=== PATIENT | male | born 1985 | race Caucasian/White ===

== ENCOUNTER 2016-08-19 07:12 | Emergency (ER) | payer MEDICAID ==
[2016-08-19] MEDS ORDERED: Acetaminophen ADULT LIQ* 650 MG/20.3 ML UDC PO ONE (08:03)
--- NOTE | 2016-08-19 08:14 | RAD ---
INDICATION: Fever. COMPARISON: Comparison is made with a prior chest x-ray study from December 26, 2015. TECHNIQUE: A portable view of the chest was obtained. FINDINGS: The heart is within normal limits in size. The lungs are underinflated. There is a small focal infiltrate at the left lung base. No pleural effusion is seen. There is a moderate to severe dorsal lumbar scoliosis convex toward the right in the dorsal region and toward the left in the lumbar region. There is a ventricular peritoneal shunt catheter which projects on the right side. IMPRESSION: THE LUNGS ARE UNDERINFLATED. THERE IS A SMALL LEFT BASILAR INFILTRATE.
[2016-08-19 08:15] LABS: Urine Bilirubin Negative (Negative); Urine Glucose Negative (Negative); Urine Nitrite Negative (Negative)
[2016-08-19 08:27] LABS: Hematocrit 60 % (42-52); Hemoglobin 19.7 g/dl (14.0-18.0); Mean Corpuscular HGB Conc 33 g/dl (31-36); Mean Corpuscular Hemoglobin 29 pg (27-31); Mean Corpuscular Volume 88 fL (80-94); Mean Platelet Volume 10 um3 (7.4-10.4); Red Blood Count 6.78 10^6/ul (4.0-5.4); Red Cell Distribution Width 14 % (10.5-15); White Blood Count 13.3 10^3/ul (3.5-10.8)
[2016-08-19 08:29] LABS: Add Diff/Slide Review? Slide Review Added; Comments Flag Yes
[2016-08-19] MEDS ORDERED: Piperac/Tazob 3.375 gm in NS* 3.375 GM/100 ML BAG IVPB ONE (08:40)
[2016-08-19 08:46] LABS: Albumin 5.3 g/dL (3.2-5.2); BUN/Creatinine Ratio 22.4 (8-20); Calcium 11.6 mg/dL (8.6-10.3); EGFR African American 135.2 (>60); EGFR Non-African American 105.1 (>60); Globulin 4.9 g/dL (2-4); Magnesium 1.8 mg/dL (1.9-2.7); Total Bilirubin 0.5 mg/dL (0.2-1.0); Total Protein 10.2 g/dL (6.4-8.9)
[2016-08-19 09:01] LABS: Troponin I 0.01 ng/mL (<0.04)
[2016-08-19 09:16] LABS: Immature Granulocytes 23 % (0-9); Neutrophil % 59 % (38-83)
[2016-08-19 09:17] LABS: Spherocytes 2+
[2016-08-19 09:29] LABS: Potassium 4.1 mmol/L (3.5-5.0)
[2016-08-19 10:20] VITALS: BP 103/57
--- NOTE | 2016-08-19 11:04 | ED ---
Guillermo Benavides Salem, scribed for Miles Spencer MD on 08/19/16 at 0744 . Neurological HPI - HPI Summary HPI Summary: Patient is a 31 y/o M who presents to the ED s/p seizure earlier today. Caregiver reports that pt has not had a seizure since the beginning of 2015. She also states that pt has a hx of ear infection and ear tubes. She reports fever, but denies a cough or cold. Pt has developmental delays. - History of Current Complaint Chief Complaint: EDSeizure Stated Complaint: SEIZURE Time Seen by Provider: 08/19/16 07:31 Hx Obtained From: Patient, Family/Nursing Home Aide Onset/Duration: Gradual Onset, Started hours ago, Resolved Onset Severity: Moderate Current Severity: Moderate Seizure Severity: Moderate Pain Intensity: 0 Pain Scale Used: 0-10 Numeric Aggravating: Nothing Alleviating: Nothing Associated Signs and Symptoms: Positive: Negative - Additional Pertinent History Primary Care Physician: HARPER - Allergy/Home Medications Allergies/Adverse Reactions: Allergies Allergy/AdvReac Type Severity Reaction Status Date / Time No Known Allergies Allergy Verified 10/16/15 15:22 PMH/Surg Hx/FS Hx/Imm Hx Endocrine/Hematology History: Denies: Hx Diabetes Cardiovascular History: Reports: Hx Congenital Heart Disease, Hx Congestive Heart Failure, Other Cardiovascular Problems/Disorders - hx pulmonary stenosis, 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 no cardiac treatment Denies: Hx Hypertension Respiratory History: Reports: Hx Pneumonia, Other Respiratory Problems/ Disorders - pulmonary stenosis GI History: Reports: Hx Gastroesophageal Reflux Disease, Hx Hiatal Hernia - repair History: Reports: Other Problems/Disorders - hx incontinence Denies: Hx Renal Disease Musculoskeletal History: Reports: Hx Scoliosis Sensory History: Reports: Hx Glaucoma - suspected, unclear if diagnosed., Hx Hearing Problem Opthamlomology History: Reports: Hx Glaucoma - suspected, unclear if diagnosed. 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 Family History: Level 5 CAVEAT - Social History Alcohol Use: None Hx Substance Use: No Substance Use Type: Reports: None Hx Tobacco Use: No Smoking Status (MU): Never Smoked Tobacco Have You Smoked in the Last Year: No Review of Systems Positive: Fever Negative: Cough Positive: incontinence Neurological: Other - Seizure. All Other Systems Reviewed And Are Negative: Yes Physical Exam Triage Information Reviewed: Yes Vital Signs On Initial Exam: Initial Vitals Temp Pulse Resp BP Pulse Ox 100.5 F 111 18 113/66 100 08/19/16 07:21 08/19/16 07:21 08/19/16 07:21 08/19/16 07:21 08/19/16 07:21 Vital Signs Reviewed: Yes Appearance: Positive: Well-Appearing, No Pain Distress Skin: Positive: Warm, Skin Color Reflects Adequate Perfusion, Dry Head/Face: Positive: Normal Head/Face Inspection Eyes: Positive: Normal ENT: Positive: Other - Left TM scared. Right TM occluded by cerumen. Neck: Positive: Supple, Nontender, No Lymphadenopathy Respiratory/Lung Sounds: Positive: Clear to Auscultation, Breath Sounds Present Cardiovascular: Positive: RRR Abdomen Description: Positive: Nontender, Soft Bowel Sounds: Positive: Present Musculoskeletal: Positive: Normal Neurological: Positive: Normal Psychiatric: Positive: Normal - Logan Coma Scale Coma Scale Total: 9 Diagnostics - Vital Signs Vital Signs Temp Pulse Resp BP Pulse Ox 08/19/16 07:22 100.5 F 107 17 113/66 100 08/19/16 07:21 100.5 F 111 18 113/66 100 - Laboratory Lab Results: Lab Results 08/19/16 08/19/16 08/19/16 Range/Units 07:48 08:14 08:14 WBC 13.3 H (3.5-10.8) 10^3/ul RBC 6.78 H (4.0-5.4) 10^6/ul Hgb 19.7 H (14.0-18.0) g/dl Hct 60 H (42-52) % MCV 88 (80-94) fL MCH 29 (27-31) pg MCHC 33 (31-36) g/dl RDW 14 (10.5-15) % Plt Count 91 L (150-450) 10^3/ul MPV 10 (7.4-10.4) um3 Immature Gran % (Auto) 23 H (0-9) % Neut % (Auto) 85.6 H (38-83) % Lymph % (Auto) 5.5 L (25-47) % Placer % (Auto) 7.1 (1-9) % Eos % (Auto) 0.5 (0-6) % Baso % (Auto) 1.3 (0-2) % Absolute Neuts (auto) 11.4 H (1.5-7.7) 10^3/ul Absolute Lymphs (auto) 0.7 L (1.0-4.8) 10^3/ul Absolute Monos (auto) 0.9 H (0-0.8) 10^3/ul Absolute Eos (auto) 0.1 (0-0.6) 10^3/ul Absolute Basos (auto) 0.2 (0-0.2) 10^3/ul Absolute Nucleated RBC 0.04 10^3/ul Neutrophils % 59 (38-83) % Band Neutrophils % 23 H (0-8) % Lymphocytes % 9 L (25-47) % Monocytes % 9 (0-13) % Nucleated RBC % 0.3 Normal RBC Morphology Not Reportable Spherocytes 2+ INR (Anticoag Therapy) 0.96 (0.89-1.11) Sodium (133-145) mmol/L Potassium (3.5-5.0) mmol/L Chloride (101-111) mmol/L Carbon Dioxide (22-32) mmol/L Anion Gap (2-11) mmol/L BUN (6-24) mg/dL Creatinine (0.67-1.17) mg/dL Est GFR ( Amer) (>60) Est GFR (Non-Af Amer) (>60) BUN/Creatinine Ratio (8-20) Glucose (70-100) mg/dL Lactic Acid (0.5-2.0) mmol/L Calcium (8.6-10.3) mg/dL Magnesium (1.9-2.7) mg/dL Total Bilirubin (0.2-1.0) mg/dL AST (13-39) U/L ALT (7-52) U/L Alkaline Phosphatase (34-104) U/L Troponin I (<0.04) ng/mL Total Protein (6.4-8.9) g/dL Albumin (3.2-5.2) g/dL Globulin (2-4) g/dL Albumin/Globulin Ratio (1-3) Urine Color Yellow Urine Appearance Clear Urine pH 7.0 (5-9) Ur Specific Beatrice 1.019 (1.010-1.030) Urine Protein Negative (Negative) Urine Ketones Trace H (Negative) Urine Blood Negative (Negative) Urine Nitrate Negative (Negative) Urine Bilirubin Negative (Negative) Urine Urobilinogen Negative (Negative) Ur Leukocyte Esterase Negative (Negative) Urine Glucose Negative (Negative) Urine Ascorbic Acid * H (Negative) 08/19/16 08/19/16 Range/Units 08:14 08:14 WBC (3.5-10.8) 10^3/ul RBC (4.0-5.4) 10^6/ul Hgb (14.0-18.0) g/dl Hct (42-52) % MCV (80-94) fL MCH (27-31) pg MCHC (31-36) g/dl RDW (10.5-15) % Plt Count (150-450) 10^3/ul MPV (7.4-10.4) um3 Immature Gran % (Auto) (0-9) % Neut % (Auto) (38-83) % Lymph % (Auto) (25-47) % Placer % (Auto) (1-9) % Eos % (Auto) (0-6) % Baso % (Auto) (0-2) % Absolute Neuts (auto) (1.5-7.7) 10^3/ul Absolute Lymphs (auto) (1.0-4.8) 10^3/ul Absolute Monos (auto) (0-0.8) 10^3/ul Absolute Eos (auto) (0-0.6) 10^3/ul Absolute Basos (auto) (0-0.2) 10^3/ul Absolute Nucleated RBC 10^3/ul Neutrophils % (38-83) % Band Neutrophils % (0-8) % Lymphocytes % (25-47) % Monocytes % (0-13) % Nucleated RBC % Normal RBC Morphology Spherocytes INR (Anticoag Therapy) (0.89-1.11) Sodium 134 (133-145) mmol/L Potassium 4.1 (3.5-5.0) mmol/L Chloride 98 L (101-111) mmol/L Carbon Dioxide 27 (22-32) mmol/L Anion Gap 9 (2-11) mmol/L BUN 19 (6-24) mg/dL Creatinine 0.85 (0.67-1.17) mg/dL Est GFR ( Amer) 135.2 (>60) Est GFR (Non-Af Amer) 105.1 (>60) BUN/Creatinine Ratio 22.4 H (8-20) Glucose 78 (70-100) mg/dL Lactic Acid 2.2 H* (0.5-2.0) mmol/L Calcium 11.6 H (8.6-10.3) mg/dL Magnesium 1.8 L (1.9-2.7) mg/dL Total Bilirubin 0.50 (0.2-1.0) mg/dL AST 40 H (13-39) U/L ALT 31 (7-52) U/L Alkaline Phosphatase 95 (34-104) U/L Troponin I 0.01 (<0.04) ng/mL Total Protein 10.2 H (6.4-8.9) g/dL Albumin 5.3 H (3.2-5.2) g/dL Globulin 4.9 H (2-4) g/dL Albumin/Globulin Ratio 1.1 (1-3) Urine Color Urine Appearance Urine pH (5-9) Ur Specific Beatrice (1.010-1.030) Urine Protein (Negative) Urine Ketones (Negative) Urine Blood (Negative) Urine Nitrate (Negative) Urine Bilirubin (Negative) Urine Urobilinogen (Negative) Ur Leukocyte Esterase (Negative) Urine Glucose (Negative) Urine Ascorbic Acid (Negative) Result Diagrams: 08/19/16 08:14 08/19/16 08:14 Diagnostic Studies Comment: Trop 1: 0.01. Lactic acid: 2.2 Lab Statement: Any lab studies that have been ordered have been reviewed, and results considered in the medical decision making process. - Radiology CXR Radiology Interpretation Completed By: Radiologist - IMPRESSION: THE LUNGS ARE UNDERINFLATED. THERE IS A SMALL LEFT BASILAR INFILTRATE. - EKG 0734 EKG Interpretation: Sinus tachycardia @ 107 bpm. Non-specific changes. Course/Dx - Course Course Of Treatment: James came in having had a witnessed seizure and with a low grade fever. He was nontoxic in appearance and was found to have a pneumonia. He was treated here and D/C'd. - Diagnoses Provider Diagnoses: Pneumonia Discharge - Discharge Plan Condition: Stable Disposition: HOME Prescriptions: Amoxicillin/Clavulanate SUSP* [Augmentin SUSP*] 800 mg PO BID #200 ml Patient Education Materials: Pneumonia (ED) Referrals: Jose Antonio Jang MD [Primary Care Provider] - Additional Instructions: Follow up with PCP. The documentation as recorded by the Guillermo gipson Salem accurately reflects the service I personally performed and the decisions made by me, Miles Spencer MD.
== END 2016-08-19 10:12 | disposition home or self-care (01) ==
LOC: ED 07:12
DX: J18.9 Pneumonia, unspecified organism (principal); R56.9 Unspecified convulsions; R50.9 Fever, unspecified
CPT/HCPCS: 36415; 71010; 80053; 81003; 83605; 83735; 84484; 85025; 85610; 93005; 99284; A9270-GY; J2543

== ENCOUNTER 2017-04-03 16:01 | Emergency (ER) | payer MEDICAID ==
--- NOTE | 2017-04-03 16:25 | UC ---
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 Hx From Patient Unobtainable Due To: Other - non verbal Onset/Duration: Gradual Onset, Lasting Days - Allergies/Home Medications Allergies/Adverse Reactions: Allergies Allergy/AdvReac Type Severity Reaction Status Date / Time No Known Allergies Allergy Verified 04/03/17 16:38 PMH/Surg Hx/FS Hx/Imm Hx Previously Healthy: Yes - vps/CP/FUO/ Respiratory History: Pneumonia Neurological History: Seizures - Surgical History Surgical History: Yes Surgery Procedure, Year, and Place: shunt surgery x 2, hernia repair, hamstring lengthening, tubes in ears x5 - Family History Known Family History: Positive: Unknown - Pt unable to provide. Family History: Level 5 CAVEAT - Social History Alcohol Use: None Substance Use Type: None Smoking Status (MU): Never Smoked Tobacco Have You Smoked in the Last Year: No - Immunization History Most Recent Influenza Vaccination: 2014 Most Recent Tetanus Shot: 2009 Most Recent Pneumonia Vaccination: never Review of Systems Constitutional: Fever - reported 2-3 days ago Skin: Negative - staff denies Eyes: Other - staff denies ENT: Other - slapping at ears/no other issues reported by staff Respiratory: Other - no cough reported by staff Cardiovascular: Other - unable to ascertain Gastrointestinal: Vomiting - days ago vomited twice Genitourinary: Other - no issues reported by staff Motor: Other - baseline unchanged per staff Neurovascular: Negative Musculoskeletal: Other: - baseline Neurological: Other - appears at baseling per staff Psychological: Other - baseline Is Patient Immunocompromised?: No All Other Systems Reviewed And Are Negative: Yes Physical Exam Triage Information Reviewed: Yes Appearance: Pain Distress - appears to be in pain/slapping head/pale and diaphoretic Vital Signs: Initial Vital Signs Temp 97 F 04/03/17 16:08 Pulse 86 04/03/17 16:08 Resp 18 04/03/17 16:08 BP 157/76 04/03/17 16:08 Pulse Ox 97 04/03/17 16:08 Vital Signs Reviewed: Yes Eyes: Positive: Conjunctiva Clear ENT: Negative: Hearing grossly normal, Nasal congestion, Nasal drainage, TMs normal - unable to visualize due to cerumen, Muffled voice, Hoarse voice Neck: Positive: Supple, Nontender, No Lymphadenopathy Respiratory: Positive: Lungs clear, Normal breath sounds, No respiratory distress, No accessory muscle use Cardiovascular: Positive: RRR, No Murmur Abdomen Description: Positive: Nontender, Soft Bowel Sounds: Positive: Present Musculoskeletal: Positive: Other: - contractures/spacity Neurological: Positive: Alert Psychological Exam: Normal Skin: Positive: Other - pale Re-Evaluation - Re-Evaluation First Eval Change: Unchanged - after flush TMs appear normal, pt still looks like he is in pain Ear Complaint Course/Dx - Differential Dx/Diagnosis Provider Diagnoses: pain of certain cause. recent fever and vomiting Discharge - Discharge Plan Condition: Fair Disposition: HOME Referrals: Jose Antonio Jang MD [Primary Care Provider] - Additional Instructions: I [place] [facility] [place] [facility]
[2017-04-03] MEDS ORDERED: Ibuprofen PED LIQ* 100 MG/5 ML UDC PO ONE (16:42)
[2017-04-03 17:25] VITALS: BP 150/80
== END 2017-04-03 17:15 | disposition home or self-care (01) ==
LOC: UCEAST 16:01
DX: R52 Pain, unspecified (principal); R50.9 Fever, unspecified; R11.10 Vomiting, unspecified
CPT/HCPCS: 99213; G0463

== ENCOUNTER 2017-04-03 17:55 | Emergency (ER) | payer MEDICAID ==
[2017-04-03 19:26] LABS: ABS Basophils 0 10^3/ul (0-0.2); ABS Eosinophils 0 10^3/ul (0-0.6); ABS Lymphocytes 1.3 10^3/ul (1.0-4.8); ABS Monocytes 1.7 10^3/ul (0-0.8); ABS Neutrophils 12.6 10^3/ul (1.5-7.7); ABS Nucleated RBC 0 10^3/ul; Eosinophil % 0.1 % (0-6); Hematocrit 52 % (42-52); Hemoglobin 17.4 g/dl (14.0-18.0); Lymphocyte % 8.1 % (25-47); Mean Corpuscular HGB Conc 33 g/dl (31-36); Mean Corpuscular Hemoglobin 30 pg (27-31); Mean Corpuscular Volume 89 fL (80-94); Mean Platelet Volume 10 um3 (7.4-10.4); Nucleated Red Blood Cells % 0; Platelet Count 89 10^3/ul (150-450); Red Blood Count 5.84 10^6/ul (4.0-5.4); Red Cell Distribution Width 14 % (10.5-15); White Blood Count 15.6 10^3/ul (3.5-10.8)
[2017-04-03 19:43] LABS: EGFR Non-African American 154.2 (>60)
[2017-04-03] MEDS ORDERED: NS 0.9% 1000 ML*IV.FLUID IV ONE (19:52)
[2017-04-03] MEDS ORDERED: Ondansetron INJ* 2 MG/ML VIAL IV ONE ×2 (19:52→20:07)
--- NOTE | 2017-04-03 20:40 | RAD ---
INDICATION: Fever COMPARISON: Chest x-ray dated October 05, 2016 TECHNIQUE: Single AP portable view of the chest was obtained. FINDINGS: Image quality is compromised due to the relative inferiority of a portable chest x-ray. Again seen is dextroconvex curvature of the thoracic spine similar in appearance to the prior chest x-ray. There appears to be a ventriculoperitoneal shunt unchanged in position. The lungs are clear. The heart and mediastinum exhibit normal size and contour. IMPRESSION: No radiographic evidence for acute cardiopulmonary abnormality on this portable chest x-ray.
[2017-04-03 22:17] LABS: Urine Appearance Clear; Urine Blood Negative (Negative); Urine Color Yellow; Urine Ketones Trace (Negative); Urine Protein Negative (Negative); Urine Specific Gravity 1.021 (1.010-1.030); Urine Urobilinogen Negative (Negative)
[2017-04-03 22:55] VITALS: BP 123/84
--- NOTE | 2017-04-04 06:03 | ED ---
Emerald Benavdies Nilda, scribed for Ann Hughes MD on 04/03/17 at 2014 . Complex/Multi-Sys Presentation - HPI Summary HPI Summary: LEVEL 5 CAVEAT: Hx is limited to pts nonverbal status due to severe MR. Pt is a 31 y/o M presenting to [facility] to [facility] accompanied by aid with a chief complaint of acute intermittent vomiting (2x) that is no longer present during the past couple of days, per medical report. Report notes pt had fever beginning today. Vomiting alleviated by spontaneous resolution. - History Of Current Complaint Chief Complaint: EDGeneral Time Seen by Provider: 04/03/17 19:28 Hx Obtained From: Medical Records Hx From Patient Unobtainable Due To: Other - severe MR Onset/Duration: Sudden Onset, Lasting Days, Resolved Timing: Intermittent, Lasting:, Days Alleviating Factor(s): spontaneous resolution Associated Signs And Symptoms: Positive: Fever - Allergies/Home Medications Allergies/Adverse Reactions: Allergies Allergy/AdvReac Type Severity Reaction Status Date / Time No Known Allergies Allergy Verified 04/03/17 16:38 PMH/Surg Hx/FS Hx/Imm Hx Endocrine/Hematology History: Denies: Hx Diabetes Cardiovascular History: Reports: Hx Congenital Heart Disease, Hx Congestive Heart Failure, Other Cardiovascular Problems/Disorders - hx pulmonary stenosis, 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 no cardiac treatment Denies: Hx Hypertension Respiratory History: Reports: Hx Pneumonia, Other Respiratory Problems/ Disorders - pulmonary stenosis GI History: Reports: Hx Gastroesophageal Reflux Disease, Hx Hiatal Hernia - repair History: Reports: Other Problems/Disorders - hx incontinence Denies: Hx Renal Disease Musculoskeletal History: Reports: Hx Scoliosis Sensory History: Reports: Hx Glaucoma - suspected, unclear if diagnosed., Hx Hearing Problem Opthamlomology History: Reports: Hx Glaucoma - suspected, unclear if diagnosed. 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 Family History: Level 5 CAVEAT - Social History Alcohol Use: None Hx Substance Use: No Substance Use Type: Reports: None Hx Tobacco Use: No Smoking Status (MU): Never Smoked Tobacco Have You Smoked in the Last Year: No Review of Systems - ROS Summary Review of Systems Summary: LEVEL 5 CAVEAT: Hx is limited to pts inability to nonverbal status due to severe MR. Positive: Fever Positive: Vomiting All Other Systems Reviewed And Are Negative: No Physical Exam - Summary Physical Exam Summary: GENERAL: Patient is a well-developed and nourished male who is lying comfortable in the stretcher. Patient is not in any acute respiratory distress. HEAD AND FACE: No signs of trauma. No ecchymosis, hematomas or skull depressions. No sinus tenderness. NECK: Supple, trachea is midline, no adenopathy, no JVD, no carotid bruit, no c- spine tenderness, neck with full ROM. CHEST: Symmetric, no tenderness at palpation CVS: Regular rate and rhythm, S1 and S2 present, no murmurs or gallops appreciated. ABDOMEN: Soft, non-tender. No signs of distention. No rebound no guarding, and no masses palpated. Bowel sounds are normal. NEURO: Severe MR, bed bound, nonverbal, Neuro exam is unable to assess because of baseline SKIN: Dry and warm Triage Information Reviewed: Yes Vital Signs On Initial Exam: Initial Vitals Temp Pulse Resp BP Pulse Ox 98.2 F 100 16 132/99 100 04/03/17 18:08 04/03/17 18:08 04/03/17 18:08 04/03/17 18:08 04/03/17 18:08 Vital Signs Reviewed: Yes Completion Of Physical Exam Limited Due To: Other - LEVEL 5 CAVEAT: PE is limited to pts nonverbal status due to severe MR. Diagnostics - Vital Signs Vital Signs Temp Pulse Resp BP Pulse Ox 04/03/17 18:08 98.2 F 100 16 132/99 100 - Laboratory Lab Results: Lab Results 04/03/17 04/03/17 Range/Units 19:15 19:15 WBC 15.6 H (3.5-10.8) 10^3/ul RBC 5.84 H (4.0-5.4) 10^6/ul Hgb 17.4 (14.0-18.0) g/dl Hct 52 (42-52) % MCV 89 (80-94) fL MCH 30 (27-31) pg MCHC 33 (31-36) g/dl RDW 14 (10.5-15) % Plt Count 89 L (150-450) 10^3/ul MPV 10 (7.4-10.4) um3 Neut % (Auto) 80.5 (38-83) % Lymph % (Auto) 8.1 L (25-47) % Christian % (Auto) 11.0 H (1-9) % Eos % (Auto) 0.1 (0-6) % Baso % (Auto) 0.3 (0-2) % Absolute Neuts (auto) 12.6 H (1.5-7.7) 10^3/ul Absolute Lymphs (auto) 1.3 (1.0-4.8) 10^3/ul Absolute Monos (auto) 1.7 H (0-0.8) 10^3/ul Absolute Eos (auto) 0 (0-0.6) 10^3/ul Absolute Basos (auto) 0 (0-0.2) 10^3/ul Absolute Nucleated RBC 0 10^3/ul Nucleated RBC % 0 Sodium 136 (133-145) mmol/L Potassium 3.7 (3.5-5.0) mmol/L Chloride 98 L (101-111) mmol/L Carbon Dioxide 27 (22-32) mmol/L Anion Gap 11 (2-11) mmol/L BUN 18 (6-24) mg/dL Creatinine 0.61 L (0.67-1.17) mg/dL Est GFR ( Amer) 198.3 (>60) Est GFR (Non-Af Amer) 154.2 (>60) BUN/Creatinine Ratio 29.5 H (8-20) Glucose 179 H (70-100) mg/dL Calcium 10.9 H (8.6-10.3) mg/dL Total Bilirubin 0.30 (0.2-1.0) mg/dL AST 21 (13-39) U/L ALT 13 (7-52) U/L Alkaline Phosphatase 67 (34-104) U/L Total Protein 8.1 (6.4-8.9) g/dL Albumin 4.3 (3.2-5.2) g/dL Globulin 3.8 (2-4) g/dL Albumin/Globulin Ratio 1.1 (1-3) Result Diagrams: 04/03/17 19:15 04/03/17 19:15 Lab Statement: Any lab studies that have been ordered have been reviewed, and results considered in the medical decision making process. - Radiology CXR Radiology Interpretation Completed By: Radiologist - No radiographic evidence for acute cardiopulmonary abnormality on this portable chest x-ray. Dr. Hughes has reviewed this report. Complex Multi-Symp Course/Dx Assessment/Plan: 31 y/o with profound MR who came to ED bc vomitted twice. Physcial Exam is unremarkable. Pt did not vomit in ED. Pt has leukocytosis without any other findings in lab or CXR. Pt will be D/C with Dx of Acute gastritis. - Diagnoses Provider Diagnoses: Acute gastritis Discharge - Discharge Plan Condition: Stable Disposition: HOME Patient Education Materials: Gastritis (ED) Referrals: Jose Antonio Jang MD [Primary Care Provider] - 3 Days Additional Instructions: RETURN TO THE EMERGENCY DEPARTMENT FOR CHANGING OR WORSENING SYMPTOMS. The documentation as recorded by the Emerald gipson Nilda accurately reflects the service I personally performed and the decisions made by Ellen burris Abdul, MD.
== END 2017-04-03 22:55 | disposition home or self-care (01) ==
LOC: ED 17:55
DX: K29.00 Acute gastritis without bleeding (principal)
CPT/HCPCS: 36415; 71045; 80053; 81003; 82150; 83690; 85025; 86140; 87502; 96374; 96375; 99283; J2405

== ENCOUNTER 2017-04-07 13:43 | Emergency (ER) | payer MEDICAID ==
[2017-04-07 15:05] LABS: ABS Basophils 0 10^3/ul (0-0.2); ABS Eosinophils 0.1 10^3/ul (0-0.6); ABS Lymphocytes 1.4 10^3/ul (1.0-4.8); ABS Monocytes 1.4 10^3/ul (0-0.8); ABS Neutrophils 4.8 10^3/ul (1.5-7.7); ABS Nucleated RBC 0 10^3/ul; Eosinophil % 1.3 % (0-6); Hematocrit 54 % (42-52); Hemoglobin 18.3 g/dl (14.0-18.0); Lymphocyte % 18.5 % (25-47); Mean Corpuscular HGB Conc 34 g/dl (31-36); Mean Corpuscular Hemoglobin 30 pg (27-31); Mean Corpuscular Volume 89 fL (80-94); Mean Platelet Volume 10 um3 (7.4-10.4); Nucleated Red Blood Cells % 0.1; Platelet Count 108 10^3/ul (150-450); Red Cell Distribution Width 14 % (10.5-15); White Blood Count 7.8 10^3/ul (3.5-10.8)
[2017-04-07 15:25] LABS: EGFR Non-African American 163.4 (>60)
[2017-04-07] MEDS ORDERED: Iohexol 300* (CONTRAST) 10 ML SDV IV ONE (17:02)
[2017-04-07] MEDS ORDERED: LORazepam INJ* 2 MG/ML 1 ML VIAL IV PUSH ONE (17:07)
--- NOTE | 2017-04-07 18:17 | RAD ---
CLINICAL HISTORY: Elevated white blood cell count. Relevant surgical history includes "shunt surgery x2" and her repair. COMPARISON: Multiple prior body CTs, most recently dated September 07, 2015 TECHNIQUE: Contrast enhanced CT examination of the abdomen and pelvis from the lung bases through the initial tuberosities. The patient received 16 mL Omnipaque 300 intravenously prior to imaging. FINDINGS: Unless otherwise specified comparisons below reference to September 07, 2015 CT examination. VISUALIZED LUNG BASES: The visualized lung bases are grossly clear. There is no pleural effusion. ABDOMEN AND PELVIS: Again seen is a right hemithorax ventricular peritoneal shunt that loops several times in the abdomen before terminating in the right lower quadrant. At the right hepatic dome (axial image 11) there is a 4 mm hypoattenuating focus unchanged from the prior CT examination and of doubtful clinical significance. The liver is otherwise homogenous in attenuation. The spleen, pancreas and adrenal glands are grossly normal in appearance. The gallbladder is normal. The kidneys are normal in appearance without focal mass, calcification or signs of hydronephrosis. Evaluation of the gastrointestinal tract is limited without oral contrast. The small and large bowel are not distended. The patient's normal appendix is identified in the right lower quadrant measuring 5 mm in diameter with gas in the lumen. The colon is mostly stool-filled but not pathologically dilated. There are air-fluid levels in the rectosigmoid colon. There is no definite wall thickening.. There is no gross retroperitoneal or mesenteric lymphadenopathy. The pelvic viscera is normal in appearance. The abdominal aorta and iliac arteries are normal in course and diameter. The spine is scoliotic. There are no acute fractures or other acute osseous abnormalities. IMPRESSION: 1. Air-fluid levels in the rectosigmoid colon could be seen in the setting of diarrhea illness. The gastrointestinal tract is otherwise unremarkable. 2. There are chronic and iatrogenic findings described in body the report not significantly changed since the most recent September 07, 2015 CT examination.
[2017-04-07 19:02] VITALS: BP 92/62
--- NOTE | 2017-04-07 19:08 | ED ---
Nettie Benavides Julia, scribed for Padmini Dee MD on 04/07/17 at 1553 . Complex/Multi-Sys Presentation - HPI Summary HPI Summary: This patient is a 31 year old M presenting to [facility] [place] accompanied by mother with a chief complaint of suspected abdominal pain. Mother suspects abdominal pain due to position, crying, and unusual behavior; she reports vomiting . During recent ED (04/03/17) visit there was no fever present, cerumen buildup , and no acute pathology with CXR. Patient has had multiple sick contacts in his group housing. Patient is generally mute, deaf, and developmentally delayed. 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 Hx From Patient Unobtainable Due To: Other - deaf, mute, developmental delay Onset/Duration: Lasting Days Timing: Constant Location: Pain At: - suspected abdominal Alleviating Factor(s): postition Associated Signs And Symptoms: Positive: Other - crying, and unusual behavior Related History: Recent Hospitalization - Allergies/Home Medications Allergies/Adverse Reactions: Allergies Allergy/AdvReac Type Severity Reaction Status Date / Time No Known Allergies Allergy Verified 04/03/17 16:38 Home Medications: Home Medications Triazolam TAB* [Halcion TAB*] 0.375 mg PO BEDTIME 04/07/17 [History Confirmed ] levETIRAcetam TAB* [Keppra TAB*] 1,000 mg PO BID 04/07/17 [History Confirmed ] PMH/Surg Hx/FS Hx/Imm Hx Endocrine/Hematology History: Denies: Hx Diabetes Cardiovascular History: Reports: Hx Congenital Heart Disease, Hx Congestive Heart Failure, Other Cardiovascular Problems/Disorders - hx pulmonary stenosis, 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 no cardiac treatment Denies: Hx Hypertension Respiratory History: Reports: Hx Pneumonia, Other Respiratory Problems/ Disorders - pulmonary stenosis GI History: Reports: Hx Gastroesophageal Reflux Disease, Hx Hiatal Hernia - repair History: Reports: Other Problems/Disorders - hx incontinence Denies: Hx Renal Disease Musculoskeletal History: Reports: Hx Scoliosis Sensory History: Reports: Hx Glaucoma - suspected, unclear if diagnosed., Hx Hearing Problem Opthamlomology History: Reports: Hx Glaucoma - suspected, unclear if diagnosed. 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 Family History: Level 5 CAVEAT - Social History Alcohol Use: None Hx Substance Use: No Substance Use Type: Reports: None Hx Tobacco Use: No Smoking Status (MU): Never Smoked Tobacco Have You Smoked in the Last Year: No Review of Systems All Other Systems Reviewed And Are Negative: No - Comments Additional Review of Systems Comments: Patient is unable to provide ROS due to developmental delays. Physical Exam - Summary Physical Exam Summary: Appearance: Awake lying face down on bed, nontoxic appearing Skin: Warm, dry, no mottling, no rashes, no contusions HEENT: EOMI, PERRL, moist mucous membranes Neck: No masses on the neck, supple Respiratory: Clear to auscultation, breath sounds present, no rales, no rhonchi , no wheezes Cardiovascular: RRR, pulses are symmetrical in both lower and upper extremities Abdomen: Soft, non-tender, non-distended Bowel Sounds: Present Musculoskeletal: No CVA tenderness, no obvious deformity, moving all extremities in a grossly normal manner, no swelling Neurological: A&Ox3, CN II-XII Intact, moving all extremities symmetrically Psychiatric: Normal affect and mood Triage Information Reviewed: Yes Vital Signs On Initial Exam: Initial Vitals Temp Pulse Resp BP Pulse Ox 98.4 F 110 16 128/88 100 04/07/17 13:45 04/07/17 13:45 04/07/17 13:45 04/07/17 13:45 04/07/17 13:45 Vital Signs Reviewed: Yes - [place] Coma Scale Coma Scale Total: 10 Diagnostics - Vital Signs Vital Signs Temp Pulse Resp BP Pulse Ox 04/07/17 14:37 98.2 F 04/07/17 13:45 98.4 F 110 16 128/88 100 - Laboratory Lab Results: Lab Results 04/07/17 04/07/17 04/07/17 Range/Units 14:53 14:53 14:53 WBC 7.8 (3.5-10.8) 10^3/ul RBC 6.10 H (4.0-5.4) 10^6/ul Hgb 18.3 H (14.0-18.0) g/dl Hct 54 H (42-52) % MCV 89 (80-94) fL MCH 30 (27-31) pg MCHC 34 (31-36) g/dl RDW 14 (10.5-15) % Plt Count 108 L (150-450) 10^3/ul MPV 10 (7.4-10.4) um3 Neut % (Auto) 61.9 (38-83) % Lymph % (Auto) 18.5 L (25-47) % [place] % (Auto) 17.7 H (1-9) % Eos % (Auto) 1.3 (0-6) % Baso % (Auto) 0.6 (0-2) % Absolute Neuts (auto) 4.8 (1.5-7.7) 10^3/ul Absolute Lymphs (auto) 1.4 (1.0-4.8) 10^3/ul Absolute Monos (auto) 1.4 H (0-0.8) 10^3/ul Absolute Eos (auto) 0.1 (0-0.6) 10^3/ul Absolute Basos (auto) 0 (0-0.2) 10^3/ul Absolute Nucleated RBC 0 10^3/ul Nucleated RBC % 0.1 Sodium 135 (133-145) mmol/L Potassium 4.2 (3.5-5.0) mmol/L Chloride 99 L (101-111) mmol/L Carbon Dioxide 29 (22-32) mmol/L Anion Gap 7 (2-11) mmol/L BUN 16 (6-24) mg/dL Creatinine 0.58 L (0.67-1.17) mg/dL Est GFR ( Amer) 210.2 (>60) Est GFR (Non-Af Amer) 163.4 (>60) BUN/Creatinine Ratio 27.6 H (8-20) Glucose 105 H (70-100) mg/dL Lactic Acid 2.0 (0.5-2.0) mmol/L Calcium 10.8 H (8.6-10.3) mg/dL Total Bilirubin 0.40 (0.2-1.0) mg/dL AST 18 (13-39) U/L ALT 11 (7-52) U/L Alkaline Phosphatase 61 (34-104) U/L Total Protein 8.0 (6.4-8.9) g/dL Albumin 4.1 (3.2-5.2) g/dL Globulin 3.9 (2-4) g/dL Albumin/Globulin Ratio 1.1 (1-3) Result Diagrams: 04/07/17 14:53 04/07/17 14:53 Lab Statement: Any lab studies that have been ordered have been reviewed, and results considered in the medical decision making process. - CT A/p CT Interpretation Completed By: Radiologist - 1. Air-fluid levels in the rectosigmoid colon could be seen in the setting of diarrhea illness. The gastrointestinal tract is otherwise unremarkable. 2. There are chronic and iatrogenic findings described in body the report not significantly changed since the most recent September 07, 2015 CT examination. ED Physician has reviewed this report. Re-Evaluation - Re-Evaluation 1 Re-Evaluation Time: 17:50 Comment: Labs were reviewed as normal. Explained to pts mother that with non verbal pts it can be difficult to appreciate cause of illness, hence the CT order. 2 Re-Evaluation Time: 18:40 Comment: Verbalized discharge instructions Complex Multi-Symp Course/Dx Course Of Treatment: Patient presented with unusal behavior. Pt was recently in the ED for fever. Pt is nonverbal but mother suspects he has abdominal pain. A/ P CT was performed to r/o any pathology.CT was unremarkable. Patient should continue regular medications. - Diagnoses Provider Diagnoses: Abdominal pain Discharge - Discharge Plan Condition: Stable Disposition: HOME Patient Education Materials: Abdominal Pain (ED) Referrals: Jose Antonio Jang MD [Primary Care Provider] - Additional Instructions: Follow up with your primary care physician early next week. return if worse or any new symptoms. Take all medications as previously instructed. The documentation as recorded by the Ntetie gipson Julia accurately reflects the service I personally performed and the decisions made by , Padmini Dee MD.
== END 2017-04-07 18:54 | disposition home or self-care (01) ==
LOC: ED 13:43
DX: R10.9 Unspecified abdominal pain (principal); R11.10 Vomiting, unspecified
CPT/HCPCS: 36415; 74177; 80053; 83605; 85025; 96374; 99283; J2060; Q9967

== ENCOUNTER 2017-04-14 21:57 | Emergency (ER) | payer MEDICAID ==
[2017-04-14] MEDS ORDERED: NS 0.9% 1000 ML* 1,000 ML IV ONE (23:37)
[2017-04-15 00:42] LABS: Hematocrit 59 % (42-52); Hemoglobin 19.7 g/dl (14.0-18.0); Mean Corpuscular HGB Conc 34 g/dl (31-36); Mean Corpuscular Hemoglobin 30 pg (27-31); Mean Corpuscular Volume 89 fL (80-94); Mean Platelet Volume 11 um3 (7.4-10.4); Platelet Count 128 10^3/ul (150-450); Red Blood Count 6.63 10^6/ul (4.0-5.4); Red Cell Distribution Width 14 % (10.5-15); White Blood Count 21.6 10^3/ul (3.5-10.8)
[2017-04-15 00:57] LABS: INR 0.98 (0.77-1.02)
[2017-04-15] MEDS ORDERED: NS 0.9% 500 ML* 500 ML IV ONE (01:09)
[2017-04-15] MEDS ORDERED: Levofloxacin 500 MG IVPREMIX(* 500 MG/100 ML BAG IVPB ONE (01:16)
[2017-04-15] MEDS ORDERED: Vancomycin(*) 500 MG in NS 0.9% 250 ML* 250 ML IVPB ONE (01:16)
[2017-04-15] MEDS ORDERED: Piperacillin/Tazobac ADVAN(*) 3.375 GM in NS 0.9% 100 ML* 100 ML IVPB ONE ×4 (01:16)
[2017-04-15 01:23] LABS: ABS Basophils 0 10^3/ul (0-0.2); ABS Eosinophils 0 10^3/ul (0-0.6); ABS Lymphocytes 1.6 10^3/ul (1.0-4.8); ABS Monocytes 2.1 10^3/ul (0-0.8); ABS Neutrophils 17.9 10^3/ul (1.5-7.7); ABS Nucleated RBC 0 10^3/ul; Eosinophil % 0.1 % (0-6); Lymphocyte % 7.2 % (25-47); Nucleated Red Blood Cells % 0
[2017-04-15 01:31] LABS: EGFR Non-African American 116.1 (>60)
[2017-04-15 02:13] LABS: Urine Appearance Clear; Urine Blood Negative (Negative); Urine Color Yellow; Urine Ketones Trace (Negative); Urine Protein Negative (Negative); Urine Urobilinogen Negative (Negative)
[2017-04-15] MEDS ORDERED: NS 0.9% 250 ML* 250 ML ONE (03:06)
[2017-04-15] MEDS ORDERED: Vancomycin(*) 750 MG in NS 0.9% 250 ML* 250 ML IVPB ONE (03:10)
--- NOTE | 2017-04-15 04:43 | ED ---
Mac Benavides Tecjoon, scribed for Frandy Edwards MD on 04/14/17 at 2336 . Abdominal Pain/Male - HPI Summary HPI Summary: This patient is a 31 year old male brought to [facility] [place] by family with a chief complaint of abdominal since the past two week. Patient lives in [facility]. Patient has been in here 3 times in the past 2 weeks for similar concerns. 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 Patient has also previously received a CT scan w/ contrast that was negative. Symptoms aggravated by nothing. Symptoms alleviated by nothing. Patients parents additionally reports vomiting. HPI Limited due to Level 5 Caveat - History of Current Complaint Chief Complaint: EDAbdPain Stated Complaint: STOMACH BUG Time Seen by Provider: 04/14/17 23:17 Hx Obtained From: Patient Onset/Duration: Gradual Onset, Still Present Timing: Constant Severity Initially: Moderate Severity Currently: Moderate Pain Intensity: 0 Pain Scale Used: 0-10 Numeric - Allergies/Home Medications Allergies/Adverse Reactions: Allergies Allergy/AdvReac Type Severity Reaction Status Date / Time No Known Allergies Allergy Verified 04/14/17 23:08 PMH/Surg Hx/FS Hx/Imm Hx Previously Healthy: No - PMHx Limited due to Level 5 Caveat Endocrine/Hematology History: Denies: Hx Diabetes Cardiovascular History: Reports: Hx Congenital Heart Disease, Hx Congestive Heart Failure, Other Cardiovascular Problems/Disorders - hx pulmonary stenosis, 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 no cardiac treatment Denies: Hx Hypertension Respiratory History: Reports: Hx Pneumonia, Other Respiratory Problems/ Disorders - pulmonary stenosis GI History: Reports: Hx Gastroesophageal Reflux Disease, Hx Hiatal Hernia - repair History: Reports: Other Problems/Disorders - hx incontinence Denies: Hx Renal Disease Musculoskeletal History: Reports: Hx Scoliosis Sensory History: Reports: Hx Glaucoma - suspected, unclear if diagnosed., Hx Hearing Problem Opthamlomology History: Reports: Hx Glaucoma - suspected, unclear if diagnosed. 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, profound MR, pt nonverbal - Surgical History Surgery Procedure, Year, and Place: shunt surgery x 2, hernia repair, hamstring lengthening, tubes in ears x5 Hx Anesthesia Reactions: No - Immunization History Date of Tetanus Vaccine: utd Date of Influenza Vaccine: utd Immunizations Up to Date: Yes Infectious Disease History: No Infectious Disease History: Denies: Traveled Outside the US in Last 30 Days - Family History Family History: FHx limited due to Level 5 Caveat - Social History Alcohol Use: None Hx Substance Use: No Substance Use Type: Reports: None Hx Tobacco Use: No Smoking Status (MU): Never Smoked Tobacco Have You Smoked in the Last Year: No Review of Systems Negative: Fever Positive: Abdominal Pain, Vomiting All Other Systems Reviewed And Are Negative: No - Comments Additional Review of Systems Comments: ROS Limited due to Level 5 Caveat Physical Exam - Summary Physical Exam Summary: Skin: warm, dry, reflects adequate perfusion Head/face: normal Eyes: LUIS, slight nystagmus in right eye ENT: Chronic appearing perforation in left ear. Dried vomitus in nose. Unable to see back of pharynx Respiratory: breath sounds shallow Cardiovascular: RRR, non-tachycardic. Posterior tibial pulse, difficult to feel dorsalis pedis pulse in both extremities. Musculoskeletal: normal, strength/ROM intact PE Limited due to Level 5 Caveat Triage Information Reviewed: No Vital Signs On Initial Exam: Initial Vitals Temp Pulse Resp BP Pulse Ox 98.4 F 100 16 135/104 94 04/14/17 22:00 04/14/17 22:00 04/14/17 22:00 04/14/17 22:00 04/14/17 22:00 Vital Signs Reviewed: No Completion Of Physical Exam Limited Due To: Level 5 Diagnostics - Vital Signs Vital Signs Temp Pulse Resp BP Pulse Ox 04/14/17 22:00 98.4 F 100 16 135/104 94 - Laboratory Lab Results: Lab Results 04/15/17 04/15/17 04/15/17 Range/Units 00:00 00:00 00:00 WBC 21.6 H (3.5-10.8) 10^3/ul RBC 6.63 H (4.0-5.4) 10^6/ul Hgb 19.7 H (14.0-18.0) g/dl Hct 59 H (42-52) % MCV 89 (80-94) fL MCH 30 (27-31) pg MCHC 34 (31-36) g/dl RDW 14 (10.5-15) % Plt Count 128 L (150-450) 10^3/ul MPV 11 H (7.4-10.4) um3 Neut % (Auto) 83.0 (38-83) % Lymph % (Auto) 7.2 L (25-47) % [place] % (Auto) 9.6 H (1-9) % Eos % (Auto) 0.1 (0-6) % Baso % (Auto) 0.1 (0-2) % Absolute Neuts (auto) 17.9 H (1.5-7.7) 10^3/ul Absolute Lymphs (auto) 1.6 (1.0-4.8) 10^3/ul Absolute Monos (auto) 2.1 H (0-0.8) 10^3/ul Absolute Eos (auto) 0 (0-0.6) 10^3/ul Absolute Basos (auto) 0 (0-0.2) 10^3/ul Absolute Nucleated RBC 0 10^3/ul Nucleated RBC % 0 INR (Anticoag Therapy) 0.98 (0.77-1.02) APTT 29.7 (26.0-36.3) seconds Sodium 137 (133-145) mmol/L Potassium 4.3 (3.5-5.0) mmol/L Chloride 98 L (101-111) mmol/L Carbon Dioxide 26 (22-32) mmol/L Anion Gap 13 H (2-11) mmol/L BUN 15 (6-24) mg/dL Creatinine 0.78 (0.67-1.17) mg/dL Est GFR ( Amer) 149.3 (>60) Est GFR (Non-Af Amer) 116.1 (>60) BUN/Creatinine Ratio 19.2 (8-20) Glucose 106 H (70-100) mg/dL Lactic Acid (0.5-2.0) mmol/L Calcium 11.8 H (8.6-10.3) mg/dL Total Bilirubin 0.50 (0.2-1.0) mg/dL AST 24 (13-39) U/L ALT 17 (7-52) U/L Alkaline Phosphatase 96 (34-104) U/L Troponin I 0.03 (<0.04) ng/mL C-Reactive Protein 6.68 H (< 5.00) mg/L Total Protein 9.3 H (6.4-8.9) g/dL Albumin 4.7 (3.2-5.2) g/dL Globulin 4.6 H (2-4) g/dL Albumin/Globulin Ratio 1.0 (1-3) TSH 8.39 H (0.34-5.60) mcIU/mL Urine Color Urine Appearance Urine pH (5-9) Ur Specific [place] (1.010-1.030) Urine Protein (Negative) Urine Ketones (Negative) Urine Blood (Negative) Urine Nitrate (Negative) Urine Bilirubin (Negative) Urine Urobilinogen (Negative) Ur Leukocyte Esterase (Negative) Urine Glucose (Negative) Urine Ascorbic Acid (Negative) Influenza A (Rapid) (Negative) Influenza B (Rapid) (Negative) Blood Type Antibody Screen 04/15/17 04/15/17 04/15/17 Range/Units 00:00 00:00 00:56 WBC (3.5-10.8) 10^3/ul RBC (4.0-5.4) 10^6/ul Hgb (14.0-18.0) g/dl Hct (42-52) % MCV (80-94) fL MCH (27-31) pg MCHC (31-36) g/dl RDW (10.5-15) % Plt Count (150-450) 10^3/ul MPV (7.4-10.4) um3 Neut % (Auto) (38-83) % Lymph % (Auto) (25-47) % [place] % (Auto) (1-9) % Eos % (Auto) (0-6) % Baso % (Auto) (0-2) % Absolute Neuts (auto) (1.5-7.7) 10^3/ul Absolute Lymphs (auto) (1.0-4.8) 10^3/ul Absolute Monos (auto) (0-0.8) 10^3/ul Absolute Eos (auto) (0-0.6) 10^3/ul Absolute Basos (auto) (0-0.2) 10^3/ul Absolute Nucleated RBC 10^3/ul Nucleated RBC % INR (Anticoag Therapy) (0.77-1.02) APTT (26.0-36.3) seconds Sodium (133-145) mmol/L Potassium (3.5-5.0) mmol/L Chloride (101-111) mmol/L Carbon Dioxide (22-32) mmol/L Anion Gap (2-11) mmol/L BUN (6-24) mg/dL Creatinine (0.67-1.17) mg/dL Est GFR ( Amer) (>60) Est GFR (Non-Af Amer) (>60) BUN/Creatinine Ratio (8-20) Glucose (70-100) mg/dL Lactic Acid 2.6 H* (0.5-2.0) mmol/L Calcium (8.6-10.3) mg/dL Total Bilirubin (0.2-1.0) mg/dL AST (13-39) U/L ALT (7-52) U/L Alkaline Phosphatase (34-104) U/L Troponin I (<0.04) ng/mL C-Reactive Protein (< 5.00) mg/L Total Protein (6.4-8.9) g/dL Albumin (3.2-5.2) g/dL Globulin (2-4) g/dL Albumin/Globulin Ratio (1-3) TSH (0.34-5.60) mcIU/mL Urine Color Urine Appearance Urine pH (5-9) Ur Specific [place] (1.010-1.030) Urine Protein (Negative) Urine Ketones (Negative) Urine Blood (Negative) Urine Nitrate (Negative) Urine Bilirubin (Negative) Urine Urobilinogen (Negative) Ur Leukocyte Esterase (Negative) Urine Glucose (Negative) Urine Ascorbic Acid (Negative) Influenza A (Rapid) Negative (Negative) Influenza B (Rapid) Negative (Negative) Blood Type O Positive Antibody Screen Negative 04/15/17 04/15/17 Range/Units 01:20 03:35 WBC (3.5-10.8) 10^3/ul RBC (4.0-5.4) 10^6/ul Hgb (14.0-18.0) g/dl Hct (42-52) % MCV (80-94) fL MCH (27-31) pg MCHC (31-36) g/dl RDW (10.5-15) % Plt Count (150-450) 10^3/ul MPV (7.4-10.4) um3 Neut % (Auto) (38-83) % Lymph % (Auto) (25-47) % [place] % (Auto) (1-9) % Eos % (Auto) (0-6) % Baso % (Auto) (0-2) % Absolute Neuts (auto) (1.5-7.7) 10^3/ul Absolute Lymphs (auto) (1.0-4.8) 10^3/ul Absolute Monos (auto) (0-0.8) 10^3/ul Absolute Eos (auto) (0-0.6) 10^3/ul Absolute Basos (auto) (0-0.2) 10^3/ul Absolute Nucleated RBC 10^3/ul Nucleated RBC % INR (Anticoag Therapy) (0.77-1.02) APTT (26.0-36.3) seconds Sodium (133-145) mmol/L Potassium (3.5-5.0) mmol/L Chloride (101-111) mmol/L Carbon Dioxide (22-32) mmol/L Anion Gap (2-11) mmol/L BUN (6-24) mg/dL Creatinine (0.67-1.17) mg/dL Est GFR ( Amer) (>60) Est GFR (Non-Af Amer) (>60) BUN/Creatinine Ratio (8-20) Glucose (70-100) mg/dL Lactic Acid 1.9 (0.5-2.0) mmol/L Calcium (8.6-10.3) mg/dL Total Bilirubin (0.2-1.0) mg/dL AST (13-39) U/L ALT (7-52) U/L Alkaline Phosphatase (34-104) U/L Troponin I (<0.04) ng/mL C-Reactive Protein (< 5.00) mg/L Total Protein (6.4-8.9) g/dL Albumin (3.2-5.2) g/dL Globulin (2-4) g/dL Albumin/Globulin Ratio (1-3) TSH (0.34-5.60) mcIU/mL Urine Color Yellow Urine Appearance Clear Urine pH 6.0 (5-9) Ur Specific [place] 1.020 (1.010-1.030) Urine Protein Negative (Negative) Urine Ketones Trace H (Negative) Urine Blood Negative (Negative) Urine Nitrate Negative (Negative) Urine Bilirubin Negative (Negative) Urine Urobilinogen Negative (Negative) Ur Leukocyte Esterase Negative (Negative) Urine Glucose Negative (Negative) Urine Ascorbic Acid * H (Negative) Influenza A (Rapid) (Negative) Influenza B (Rapid) (Negative) Blood Type Antibody Screen Result Diagrams: 04/15/17 00:00 04/15/17 00:00 Lab Statement: Any lab studies that have been ordered have been reviewed, and results considered in the medical decision making process. - Radiology CXR Xray Interpretation: Positive (See Comments) - CXR reveals, per radiologist, IMPRESSION: severe scoliosis, No definite infiltrate, limited by habitus. ED physician has reviewed this report. Radiology Interpretation Completed By: Radiologist - CT CT Head CT Interpretation: Positive (See Comments) - IMPRESSION: No hemorrhage shift or herniation. No obvious infarct. Osseous structures are intact. Possible kink in shunt. ED physician has reviewed this radiology report. CT Interpretation Completed By: Radiologist - EKG 4360 Cardiac Rate: NL EKG Rhythm: Sinus Rhythm - 95 BPM EKG Interpretation: NSR (95 BPM), Normal axis, Short IL without Delta waves, Normal ST. - Additional Comments Diagnostic Additional Comments: Shunt Series #1: appears as disruption of the shunt in the R neck Shunt Series #2: performed at request of Neurosurgery. Shunt disruption in the R neck is confirmed. On review of old films, shunt was intact in 08/2016. Re-Evaluation - Re-Evaluation First Eval Change: Unchanged Abdominal Pain Fem Course/Dx - Course Course Of Treatment: Pt with deterioration of MS over weeks. Had mult evals without cause identified. Today, dry appearing with vomiting and "lethargy." Head CT shows ventricles slightly enlarged. Shunt series performed with disruption of the shunt in the R neck. Neurosurgeon came to ED to evaluate. He agrees shunt needs to be revised. He suggests transfer to tertiary care given his comorbid state. Family and guardian agree. He is begum of state, guardian present. They consent to transfer. Prior to id of this cause he was hydrated with 30ml/kg and given broad spectrum abx. His lactate and WBC are elevated. He is hemoconcentrate. He is improving here and protecting his airway without issue. [facility] not available to transfer. [facility] (where pt had shunt performed 30yrs ago) was contacted and accepted pt in transfer to the ED. He will be evaluated by Neurosurg team there. He is stable for transfer. Assessment/Plan: Neurosurg and Hosptialist (Dr Carolina) assisted and evaluated pt here. They agree at tertiary care transfer. Pt accepted by Dr Liang at [facility]. 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 Carrera) at 0150 and they agreed to come see the patient. Instructed by Provider To: Transfer - Critical Care Time Critical Care Time: 75-104 min - excludes separately billable procedures. Includes multiple consults, complex MDM, discussion with family and guardian, and transfer arrangements. Discharge - Discharge Plan Condition: Guarded Disposition: TRANS HIGHER LVL OF CARE FAC Referrals: Jose Antonio Jang MD [Primary Care Provider] - Consult Consult: We discussed patient care with Dr. Carrera (Neurosurgery) at 0254 and they recommended repeated the Shunt study. We discussed patient care with Dr. Carrera (Neurosurgery) at 0400, who talked to family and recommended transferring patient to tertiary care facility. We discussed patient care with Dr. Rivero (Accepting Doctor at [facility] ) at 0433, who agreed to accept the transfer. The documentation as recorded by the Mac gipson Tecjoon accurately reflects the service I personally performed and the decisions made by , Frandy Edwards MD.
[2017-04-15 05:38] VITALS: BP 122/87
--- NOTE | 2017-04-15 08:04 | RAD ---
HISTORY: Lethargy, shunt COMPARISONS: June 30, 2015 TECHNIQUE: Multiple contiguous axial CT scans were obtained of the head without intravenous contrast. Coronal and sagittal multiplanar reformations are also submitted for review. FINDINGS: HEMORRHAGE/INFARCT: There is no hemorrhage or acute infarct. MASSES/SHIFT: There is no mass or shift. EXTRA-AXIAL SPACES: There is a large posterior fossa fluid collection that communicates with the fourth ventricle consistent with Dandy-Walker malformation. A shunt catheter is noted in this collection from a right occipital craniotomy approach. SULCI AND VENTRICLES: There is diffuse ventriculomegaly. A ventricular shunt catheter is noted from a right parietal craniotomy approach with the tip in the right lateral ventricle near the septum pellucidum. The appearance is similar to the 2016 examination. CEREBRUM: There is diffuse hypoattenuation volume loss of the periventricular white matter. This is stable. BRAINSTEM: There are no focal parenchymal abnormalities. CEREBELLUM: There are no focal parenchymal abnormalities. VESSELS: The vessels appear hyperdense. PARANASAL SINUSES: The paranasal sinuses are clear. The mastoid air cells are sclerotic and coalescent. ORBITS: The orbits are unremarkable. BONES AND SOFT TISSUE: There is expansion of the diploic space with chronic anticonvulsant therapy. OTHER: None IMPRESSION: 1. VENTRICULOMEGALY CONSISTENT WITH HYDROCEPHALUS. THE SIZE OF THE VENTRICLES IS SIMILAR TO JUNE 30, 2015. THE PATIENT IS STATUS POST VENTRICULAR SHUNTING. 2. DANDY-WALKER MALFORMATION. 3. THE VESSELS ARE HYPERDENSE WHICH SUGGESTS HEMOCONCENTRATION IN THE SETTING OF DEHYDRATION
--- NOTE | 2017-04-15 08:05 | RAD ---
HISTORY: Lethargy COMPARISONS: April 03, 2017 VIEWS: 1: frontal portable view of the chest at 12:33 AM FINDINGS: LINES AND TUBES: Ventricular shunt catheter tubing is noted. CARDIOMEDIASTINAL SILHOUETTE: The cardiomediastinal silhouette is normal for portable technique. PLEURA: The costophrenic angles are sharp. No pleural abnormalities are noted. LUNG PARENCHYMA: The lungs are clear. ABDOMEN: The upper abdomen is clear. There is no subphrenic gas. BONES AND SOFT TISSUES: There is a scoliotic curvature of the spine. IMPRESSION: NO ACTIVE CARDIOPULMONARY DISEASE.
--- NOTE | 2017-04-15 08:14 | RAD ---
HISTORY: Lethargy, enlarged ventricles COMPARISONS: May 29, 2014 VIEWS: Frontal and lateral views of the skull and frontal views of the chest and abdomen, performed at 2:28 AM and 3:25 AM FINDINGS: A ventriculoperitoneal shunt catheter is noted. There are 2 ventricular catheter is noted overlying the skull from a right parietal and right occipital craniotomy approach. There is a discontinuity of the shunt tubing in the neck that is not present on the previous examination. The remainder of the shunt tubing is intact and similar to the previous examination. IMPRESSION: THERE IS A DISCONTINUITY IN THE VENTRICULOPERITONEAL SHUNT TUBING ALONG THE NECK THAT IS NOT PRESENT ON THE PREVIOUS EXAMINATION CONSISTENT WITH A BREAK IN THE SHUNT TUBING. THESE FINDINGS WERE DISCUSSED WITH HO IN THE EMERGENCY DEPARTMENT AT APPROXIMATELY 8:10 AM ON APRIL 15, 2017
--- NOTE | 2017-04-15 15:33 | CONS ---
CONSULTATION REPORT: DATE OF CONSULT: 04/14/17 - EMERGENCY DEPT HISTORY OF PRESENT ILLNESS: The patient is a 31-year-old male who has history of Dandy-Walker syndrome, seizure, and BIOLOGY INTERN shunt placement at , who was brought to the emergency room after a 3 weeks' history of decreased po intake and altered mental status. The patient has been evaluated over the last 3 weeks for a possible gastroenteritis. I was requested to see the patient by ED physician regarding CT findings of the head revealing ventriculomegaly and history of BIOLOGY INTERN shunt. The patient was seen in the emergency room and history was obtained from the patient's chart, ED physician, and the patient's mother and guardian, who are at bedside. The patient has a long history of developmental delay, Dandy-Walker syndrome, SZ, VPS. He lives in a long term. He has history of seizures and was followed by Neurology. He was treated for hydrocephalus and received first shunt in the first year of life and revision in the [age] year of life. There were no other revisions of his shunt, although there are some retained catheters as the family reports. The last 3 weeks, he has progressively become more lethargic without his usual ability to take p.o. He has decreased appetite and has episodes of vomiting. No history of recent seizures. No history of recent fevers. PAST MEDICAL HISTORY: The patient has history of Dandy-Walker, developmental delay, congenital heart disease, congestive heart failure, pulmonary stenosis, GERD, hiatal hernia, scoliosis, and seizures. PAST SURGICAL HISTORY: BIOLOGY INTERN shunt placement with revision at year 6 of life, hernia repair, hamstring lengthening, myringotomy bilaterally. ALLERGIES: No known drug allergies. FAMILY HISTORY: Noncontributory. SOCIAL HISTORY: Alcohol, negative. Tobacco, negative. Recreational drug use, negative. PHYSICAL EXAM: The patient is not in acute distress. His eyes are open and he tracks spontaneously. He is nonverbal. His wounds are soft, dry; healed very well. His abdomen is soft, nontender. Shunt valve pumps and refills without difficulty. His pupils are equal and reactive. Face symmetric. Tongue in the midline. He moves his upper extremities spontaneously and purposefully. He is able to localize the pain. Lower extremity spasticity with atrophy. He withdraws his lower extremities to painful stimuli as well as the upper extremities. Deep tendon reflexes +1 bilaterally in the upper extremities. Lower extremities have spasticity and DTRs are difficult to elicit. The patient has no tenderness to palpation of the thoracic or lumbar spine. He has no neck stiffness. DIAGNOSTIC STUDIES: The patient had a CT scan of his brain that reveals slight increase in the ventricular size compared to the previous film, although the difference may be due to different orientation of the CAT. According to the external radiology report, there was a questionable kink in the one of the shunt catheters, although to my review, the course of the catheter seemed to be unchanged compared to previous scans. On shunt series, there is a discontinuation of the BIOLOGY INTERN shunt in the right cervical area, that is new compared to previous imaging. ASSESSMENT: The patient is a very pleasant 31-year-old male, who has history of developmental delay, Dandy-Walker, hydrocephalus, seizures, ventriculoperitoneal shunt placement, scoliosis, who comes with gradually worsening of mental status and CT scan findings consistent with slight increase in the ventricular system as well as disconnection of the BIOLOGY INTERN shunt. PLAN: The patient at this point has most probably shunt disconnection and for this reason, surgical intervention was offered to the family in the form of distal and possible proximal BIOLOGY INTERN shunt revision. We discussed risks and benefits of the procedure as well as the patient's clinical condition and outcomes. The patient's mother as well as the guardian like to have the patient treated in a larger hospital and they have requested the patient to be transferred if possible. We will be happy to follow family's wishes. The patient will be scheduled for transfer from the ED. Full instructions were given to the patient's family. Thank you for allowing us to participate in the care of this patient. Please do not hesitate to contact our office if you have any further questions or concerns regarding the care of this patient. Brian Manning MD [id number]/[facility] #: [id number] STEPHANIE
== END 2017-04-15 05:37 | disposition short-term general hospital (02) ==
LOC: ED 21:57
DX: T85.09XA Other mechanical complication of ventricular intracranial (communicating) shunt, initial encounter (principal); E86.0 Dehydration; Q03.1 Atresia of foramina of Magendie and Luschka; F79 Unspecified intellectual disabilities; R10.9 Unspecified abdominal pain; Z86.79 Personal history of other diseases of the circulatory system; R11.10 Vomiting, unspecified; Z87.19 Personal history of other diseases of the digestive system
CPT/HCPCS: 36415; 70250; 70450; 71045; 72020; 74018; 80053; 81003; 83605; 84443; 84484; 85025; 85610; 85730; 86140; 86850; 86900; 86901; 87040; 87502; 96365; 96366; 99283; J2543; J3370

== ENCOUNTER 2017-11-14 12:26 | Emergency (ER) | payer MEDICAID ==
[2017-11-14 13:15] VITALS: BP 111/47
--- NOTE | 2017-11-14 13:25 | UC ---
Skin Complaint HPI - HPI Summary HPI Summary: multiple skin bumps all over x 2 days the bumps are very itchy , was at an outdoor concert 2 days ago ? bug bites all over - History of Current Complaint Chief Complaint: UCSkin Time Seen by Provider: 11/14/17 13:14 Stated Complaint: RASH Hx Obtained From: Family/[employer] Inspector Onset/Duration: Gradual Onset, Lasting Days - 2, Still Present Timing: Constant Onset Severity: Moderate Current Severity: Moderate Pain Intensity: 0 Location: Diffuse Character: Pruritus, Redness Aggravating Factor(s): Nothing Alleviating Factor(s): Nothing Associated Signs & Symptoms: Negative: Fever, Cough Related History: Insect Bite/Sting - Allergy/Home Medications Allergies/Adverse Reactions: Allergies Allergy/AdvReac Type Severity Reaction Status Date / Time No Known Allergies Allergy Verified 04/14/17 23:08 Review of Systems Skin: Rash Is Patient Immunocompromised?: No All Other Systems Reviewed And Are Negative: Yes PMH/Surg Hx/FS Hx/Imm Hx - Additional Past Medical History Additional PMH: IDD, SEIZURES, ITP, PULMONARY STENOSIS, GERD SEVERE HEARING LOSS [ End ] Cardiovascular History: Cardiac Disease - Surgical History Surgical History: Yes Surgery Procedure, Year, and Place: shunt surgery x 2, hernia repair, hamstring lengthening, tubes in ears x5 - Family History Known Family History: Positive: Unknown - Pt unable to provide. Family History: FHx limited due to Level 5 Caveat - Social History Alcohol Use: None Substance Use Type: None Smoking Status (MU): Never Smoked Tobacco Have You Smoked in the Last Year: No - Immunization History Most Recent Influenza Vaccination: 2014 Most Recent Tetanus Shot: 2009 Most Recent Pneumonia Vaccination: never Physical Exam Triage Information Reviewed: Yes Completion Of Physical Exam Limited Due To: Other - sever MR , non-verbal Appearance: No Pain Distress Vital Signs: Initial Vital Signs Temp 97.2 F 11/14/17 13:06 Pulse 94 11/14/17 13:06 Resp 21 11/14/17 13:06 BP 111/47 11/14/17 13:06 Pulse Ox 100 11/14/17 13:06 Vital Signs Reviewed: Yes Eye Exam: Normal Eyes: Positive: Conjunctiva Clear ENT Exam: Normal ENT: Positive: Normal ENT inspection Neck: Positive: Supple, Nontender, No Lymphadenopathy Respiratory: Positive: Chest non-tender, Lungs clear, Normal breath sounds Cardiovascular: Positive: RRR, No Murmur Skin: Positive: rashes - multiple papular rash diffuse Course/Dx - Diagnoses Provider Diagnoses: insect bite Discharge - Sign-Out/Discharge Documenting (check all that apply): Patient Departure All imaging exams completed and their final reports reviewed: No Studies - Discharge Plan Condition: Stable Disposition: HOME Prescriptions: Triamcinolone 0.1% CREAM (NF) [Kenalog 0.1% Cream (NF)] 1 applic TOPICAL BID # 30 gm Patient Education Materials: Insect Bite or Sting (ED) Referrals: Jose Antonio Jang MD [Primary Care Provider] - If Needed - Billing Disposition and Condition Condition: STABLE Disposition: Home
== END 2017-11-14 13:28 | disposition home or self-care (01) ==
LOC: UCCORT 12:26
DX: T14.8XXA Other injury of unspecified body region, initial encounter (principal); W57.XXXA Bitten or stung by nonvenomous insect and other nonvenomous arthropods, initial encounter; Y92.9 Unspecified place or not applicable
CPT/HCPCS: 99212; G0463

== ENCOUNTER 2018-07-31 12:53 | Emergency (ER) | payer MEDICAID ==
--- OUTSIDE RECORDS SUMMARY | 2018-07-31 13:08 | XMS REPORT | Continuity of Care Document ---
:1985 External Reference #:[id number] Author Name Katina Delacruz Care Team Providers Name Role Phone Jose Antonio Jang MD Care Team Information Associate Software Development Engineer Unavailable Jose Antonio Jang MD Primary Care Physician Unavailable Payers Date Identification Numbers Payment Provider Subscriber Policy Number: [id number] Medicaid James Truong PayID: [id number] [address] [place] [id number] Advance Directives Description No Information Available Problems Description No Information Family History Description No Information Available Social History Type Date Description Comments Sex Unknown Tobacco Use Start: Unknown Never Smoked Cigarettes ETOH Use Never used alcohol Recreational Drug Use Never Used Drugs Allergies, Adverse Reactions, Alerts Description No Known Drug Allergies Medications Active Medications SIG Qnty Indications Ordering Provider Date Divalproex Sodium ER 125 mg Unknown 250mg Tablets ER 24HR Miralax Unknown [id number] Packet Peridex Unknown 0.12% Solution Keppra 500mg twice per Unknown 500mg Tablets day(am/pm)-generi c Klonopin 1 by mouth every Unknown 2mg Tablets 8 hours as needed for anxiety Colcrys 1 tab every in Unknown 0.6mg Tablets the morning and 2 tabs every at night as needed gout Immunizations Description No Information Available Vital Signs Date Vital Result Comment 07/16/2018 10:14am Weight 98.00 lb Height 56 inches 4'8" BMI (Body Mass Index) 22.0 kg/m2 BP Systolic 123 mmHg BP Diastolic 79 mmHg Heart Rate 67 /min O2 % BldC Oximetry 98 % Body Temperature 97.5 F Pain Level 0 Results Description No Information Available Procedures Description No Information Available Encounters Description No Information Available Plan of Treatment No Information Available
[2018-07-31 13:36] VITALS: BP 135/63
--- NOTE | 2018-07-31 13:55 | UC ---
Skin Complaint HPI - HPI Summary HPI Summary: Pt is accompanied by fpc caregiver. CAregiver reports that pt has what appears to be a "bug bite" to to left anterior, lateral proximal knee that has a dried scab and mild erythematous area the is circular and ~ 2 cm in diameter. Pt is on verbal but does demonstrate that he is in pain when area is touched. Caregiver reports that pt has not been acting "Like himself" that he appears to not feel well. - History of Current Complaint Time Seen by Provider: 07/31/18 13:08 Stated Complaint: SKIN CONCERN LT LEG Hx Obtained From: Patient Onset/Duration: Sudden Onset, Still Present Skin Exposure Onset/Duration: Hours Ago Timing: Constant Onset Severity: Mild Current Severity: Mild Pain Intensity: 0 Location: Discrete - left anterior lateral knee Character: Redness, Raised, Painful Aggravating Factor(s): Touch Alleviating Factor(s): Nothing Associated Signs & Symptoms: Positive: Fever, Tenderness Related History: Insect Bite/Sting - possible - Allergy/Home Medications Allergies/Adverse Reactions: Allergies Allergy/AdvReac Type Severity Reaction Status Date / Time No Known Allergies Allergy Verified 07/31/18 13:16 PMH/Surg Hx/FS Hx/Imm Hx Previously Healthy: Yes - has cognitive and mobility delays, - Surgical History Surgical History: Yes Surgery Procedure, Year, and Place: shunt surgery x 2, hernia repair, hamstring lengthening, tubes in ears x5 - Family History Known Family History: Positive: Unknown - Pt unable to provide. Family History: FHx limited due to Level 5 Caveat - Social History Occupation: Disabled Lives: Senior Care Alcohol Use: None Substance Use Type: None Smoking Status (MU): Never Smoked Tobacco Have You Smoked in the Last Year: No - Immunization History Most Recent Influenza Vaccination: 2014 Most Recent Tetanus Shot: 2009 Most Recent Pneumonia Vaccination: never Review of Systems All Other Systems Reviewed And Are Negative: Yes Constitutional: Positive: Fever Skin: Positive: Other - possible insect bite, erythema, mild swelling at site, scab in center of erythema tous area. Eyes: Positive: Negative ENT: Positive: Negative Respiratory: Positive: Negative Cardiovascular: Positive: Negative Gastrointestinal: Positive: Negative Genitourinary: Positive: Negative Motor: Positive: Other - at baseline per caregiver Neurovascular: Positive: Negative Musculoskeletal: Positive: Edema - left knee at wound site Neurological: Positive: Negative Psychological: Positive: Negative Is Patient Immunocompromised?: No Physical Exam Triage Information Reviewed: Yes Completion Of Physical Exam Limited Due To: Other - pt is non verbal, and has mobility delays/disabilities Appearance: Pain Distress - with palpation of wound Vital Signs: Initial Vital Signs Temp 100.1 F 07/31/18 13:25 Pulse 110 07/31/18 13:25 Resp 20 07/31/18 13:25 BP 135/63 07/31/18 13:25 Pulse Ox 97 07/31/18 13:25 Vital Signs Reviewed: Yes Eye Exam: Normal ENT Exam: Other - no congestion, limited exam du e to pt's baseline condition ENT: Negative: Nasal congestion Dental Exam: Normal Neck exam: Normal Respiratory Exam: Normal Cardiovascular: Positive: Tachycardia Musculoskeletal: Positive: Edema @ - mild swelling at possible bite site Neurological Exam: Normal Neurological: Positive: Alert Psychological Exam: Normal Skin Exam: Other - mild erythema ~ 2cm in diameter with dried scab in center and mild swelling at site, Pt has painful response when site palpated. Course/Dx - Course Course Of Treatment: I discussed with the caregiver the need to monitor for worsening of condition ad to seek care at the closest emergency room if pt's symptoms do not improve or worsen in the next - Differential Diagnoses - Skin Complaint Differential Diagnoses: Cellulitis, Impetigo, MRSA, Other - sepsis - Diagnoses Provider Diagnosis: Cellulitis, Fever Discharge - Sign-Out/Discharge Documenting (check all that apply): Patient Departure All imaging exams completed and their final reports reviewed: No Studies - Discharge Plan Condition: Stable Disposition: HOME Prescriptions: Sulfamethox/Trimethoprim DS* [Bactrim DS 800/160 TAB*] 1 tab PO Q12H #20 tab Patient Education Materials: Cellulitis (ED), Fever in Adults (ED) Referrals: Jose Antonio Jang MD [Primary Care Provider] - As Soon As Possible Additional Instructions: Please follow up with your PCP as soon as possible. If your symptoms do not improve in the next 24 hours, please seek care at the closest emergency room. - Billing Disposition and Condition Condition: STABLE Disposition: Home
== END 2018-07-31 14:20 | disposition home or self-care (01) ==
LOC: UCCORT 12:53
DX: L03.116 Cellulitis of left lower limb (principal); R50.9 Fever, unspecified
CPT/HCPCS: 99212; G0463

== ENCOUNTER 2022-03-08 13:23 | Inpatient (IN) ==
[2022-03-08] MEDS ORDERED: LACTATED RINGERS SEPSIS IV ONE (13:57)
[2022-03-08 14:30] LABS: Hematocrit 42 % (42-52); Hemoglobin 13.7 g/dL (14.0-18.0); Mean Corpuscular HGB Conc 33 g/dL (31-36); Mean Corpuscular Hemoglobin 25 pg (27-31); Mean Corpuscular Volume 78 fL (80-94); Mean Platelet Volume 8.6 fL (7.4-10.4); Platelet Count 177 10^3/uL (150-450); Red Cell Distribution Width 17 % (10-15); White Blood Count 12.3 10^3/uL (3.5-10.8)
[2022-03-08 15:16] LABS: ALT 13 U/L (7-52); Albumin 3.9 g/dL (3.2-5.2); Albumin/Globulin Ratio 0.9 (1-3); Alkaline Phosphatase 73 U/L (35-149); Blood Urea Nitrogen 20 mg/dL (6-24); C Reactive Protein 11.67 mg/L (<8.01); CO2 Carbon Dioxide 26 mmol/L (22-32); Calcium 9.7 mg/dL (8.6-10.3); Chloride 100 mmol/L (101-111); Globulin 4.2 g/dL (2-4); Glucose 91 mg/dL (70-100); Sodium 135 mmol/L (135-145); Total Protein 8.1 g/dL (6.4-8.9); eGFR CKD-EPI 119.5 (>60)
[2022-03-08 15:31] LABS: Anion Gap 9 mmol/L (2-11)
[2022-03-08 15:50] LABS: Anisocytosis 1+
[2022-03-08 15:52] LABS: ABS Lymphocytes 0.7 10^3/ul (1.0-4.8); ABS Monocytes 1.3 10^3/ul (0-0.8); ABS Neutrophils 10.1 10^3/ul (1.5-7.7); Eosinophil % 0.1 %; Lymphocyte % 6.1 %; Nucleated Red Blood Cells % 0.2
[2022-03-08] MEDS ORDERED: Piperacillin/Tazobac ADVAN 3.375 GM in NS 0.9% 100 ml BAG 100 ML IV ONE (16:32)
[2022-03-08 16:40] LABS: High Sens Troponin Baseline 7 pg/mL (<20)
[2022-03-08] MEDS ORDERED: Vancomycin 1,000 MG in NS 0.9% 250 ml 250 ML IVPB ONE (17:00)
[2022-03-08] MEDS ORDERED: LORazepam 2 mg VIAL 1 ml ONE (17:17)
[2022-03-08] MEDS ORDERED: LORazepam 2 mg VIAL 1 ml IV PUSH ONE (17:18)
[2022-03-08] MEDS ORDERED: Lorazepam PYXIS KEY PRN (17:18)
[2022-03-08] MEDS ORDERED: NS 0.9% 1000 ml BAG 1,000 ML IV ONE (17:53)
[2022-03-08 18:05] LABS: Urine Appearance Clear; Urine Bilirubin Negative (Negative); Urine Blood Negative (Negative); Urine Color Straw; Urine Glucose Negative (Negative); Urine Ketones Negative (Negative); Urine Nitrite Negative (Negative); Urine Protein Negative (Negative); Urine Urobilinogen 0.2 (Negative) (Negative)
[2022-03-08 18:14] LABS: High Sensitivity Troponin 1 Hr 11 pg/mL (<20)
[2022-03-08] MEDS ORDERED: levETIRAcetam IV 1,500 MG in NS 0.9% 100 ml BAG 100 ML IVPB ONE (18:40)
[2022-03-08] MEDS ORDERED: Iohexol 350 (CONTRAST) 500 ML MDV IV ONE (19:12)
[2022-03-08] MEDS ORDERED: Zosyn per Pharmacy NOTE FOLLOW UP SCH (20:00)
[2022-03-08] MEDS ORDERED: Vancomycin per Pharmacy 1 EA NOTE FOLLOW UP SCH (20:00)
[2022-03-08] MEDS ORDERED: Acetaminophen IV 1 GM/100ML 1,000 MG/100 ML BAG IV SCH (21:00)
[2022-03-08] MEDS ORDERED: Lactated Ringers 1000 ml BAG 1,000 ML IV ONE (22:52)
[2022-03-08] MEDS ORDERED: Acetaminophen IV 1 GM/100ML 1,000 MG/100 ML BAG IV PRN (23:55)
[2022-03-09] MEDS: ZOSYN 3.375 GM Q8H per EXTENDED INFUSION IV SCH ×4 (00:07→22:47)
[2022-03-09 00:30] LABS: INR 1.49 (0.88-1.18)
[2022-03-09] MEDS: Lactated Ringers 1000 ml BAG 1,000 ML IV SCH ×2 (01:05→10:42)
[2022-03-09] MEDS: Acetaminophen IV 1 GM/100ML 1,000 MG/100 ML BAG IV SCH ×2 (02:09→10:17)
[2022-03-09] MEDS: Vancomycin 750 MG in NS 0.9% 250 ML IVPB SCH ×2 (02:28→10:41)
[2022-03-09 06:15] LABS: Hematocrit 40 % (42-52); Hemoglobin 12.7 g/dL (14.0-18.0); Mean Corpuscular HGB Conc 32 g/dL (31-36); Mean Corpuscular Hemoglobin 25 pg (27-31); Mean Corpuscular Volume 79 fL (80-94); Mean Platelet Volume 8.9 fL (7.4-10.4); Platelet Count 179 10^3/uL (150-450); Red Blood Count 5.04 10^6 /uL (4.18-5.48); Red Cell Distribution Width 18 % (10-15); White Blood Count 17.2 10^3/uL (3.5-10.8)
[2022-03-09 06:22] LABS: ABS Lymphocytes 1.9 10^3/ul (1.0-4.8); ABS Monocytes 1.6 10^3/ul (0-0.8); ABS Neutrophils 13.7 10^3/ul (1.5-7.7); Eosinophil % 0.1 %; Lymphocyte % 10.8 %; Nucleated Red Blood Cells % 0.1
[2022-03-09 06:44] LABS: Calcium 8.6 mg/dL (8.6-10.3); Potassium 4.1 mmol/L (3.5-5.0)
[2022-03-09 06:50] LABS: eGFR CKD-EPI 125.2 (>60)
[2022-03-09] MEDS: Polyethylene Glycol 3350 17 GM PACKET PO SCH (10:25)
[2022-03-09] MEDS ORDERED: ACETAMINOPHEN IV SCH (13:00)
[2022-03-09] MEDS ORDERED: fentaNYL 100 mcg/2 ml 50 MCG/ML VIAL ONE (14:04)
[2022-03-09] MEDS ORDERED: Midazolam 2 mg/2 ml VIAL 1 mg/ml 2 ml VIAL (2 mg) ONE (14:16)
[2022-03-09 14:45] LABS: Magnesium 1.5 mg/dL (1.9-2.7); Phosphorus 3.8 mg/dL (2.5-5.0)
[2022-03-09] MEDS ORDERED: Vancomycin Trough Check NOTE FOLLOW UP ONE (17:30)
[2022-03-09] MEDS: ACETAMINOPHEN IV SCH ×2 (20:40→21:59)
[2022-03-10] MEDS: ACETAMINOPHEN IV SCH (04:34)
[2022-03-10] MEDS: ZOSYN 3.375 GM Q8H per EXTENDED INFUSION IV SCH ×3 (06:03→21:13)
[2022-03-10 08:01] LABS: ABS Basophils 0.1 10^3/ul (0-0.2); ABS Eosinophils 0.3 10^3/ul (0-0.6); ABS Lymphocytes 1.5 10^3/ul (1.0-4.8); ABS Monocytes 0.9 10^3/ul (0-0.8); ABS Neutrophils 11.1 10^3/ul (1.5-7.7); Eosinophil % 2.1 %; Hematocrit 37 % (42-52); Hemoglobin 11.8 g/dL (14.0-18.0); Lymphocyte % 10.6 %; Mean Corpuscular HGB Conc 32 g/dL (31-36); Mean Corpuscular Hemoglobin 25 pg (27-31); Mean Corpuscular Volume 79 fL (80-94); Mean Platelet Volume 8.7 fL (7.4-10.4); Platelet Count 150 10^3/uL (150-450); Red Blood Count 4.63 10^6 /uL (4.18-5.48); Red Cell Distribution Width 17 % (10-15); White Blood Count 13.9 10^3/uL (3.5-10.8)
[2022-03-10 08:23] LABS: Blood Urea Nitrogen 9 mg/dL (6-24); CO2 Carbon Dioxide 28 mmol/L (22-32); Calcium 8.8 mg/dL (8.6-10.3); Chloride 105 mmol/L (101-111); Glucose 52 mg/dL (70-100); Sodium 142 mmol/L (135-145); eGFR CKD-EPI 128.3 (>60)
[2022-03-10 08:24] LABS: Anion Gap 9 mmol/L (2-11)
[2022-03-10] MEDS: Polyethylene Glycol 3350 17 GM PACKET PO SCH (09:10)
[2022-03-10 09:45] LABS: Magnesium 1.7 mg/dL (1.9-2.7)
[2022-03-10 10:34] LABS: Body Fluid WBC 40 /mcL
[2022-03-10 10:35] LABS: Body Fluid Appearance Clear; Body Fluid Color Yellow; Body Fluid Source Peritonial Fluid
[2022-03-10 11:10] LABS: Body Fluid Mono 25 %; Body Fluid Total Cells Counted 200
[2022-03-10] MEDS ORDERED: Potassium Chloride LIQUID 20 MEQ/15 ML LIQUID PO ONE (16:12)
[2022-03-10] MEDS ORDERED: Potassium Chlor 20 meq TAB.ER PO ONE ×2 (16:19→21:00)
[2022-03-10] MEDS: Azithromycin 500 mg/250 ml NS 500 MG/250 ML BAG IVPB SCH (19:36)
[2022-03-11] MEDS: ZOSYN 3.375 GM Q8H per EXTENDED INFUSION IV SCH ×2 (06:01→13:36)
[2022-03-11] MEDS: Polyethylene Glycol 3350 17 GM PACKET PO SCH (08:39)
[2022-03-11 09:33] LABS: Calcium 9.4 mg/dL (8.6-10.3); Magnesium 1.9 mg/dL (1.9-2.7); Potassium 3.9 mmol/L (3.5-5.0); eGFR CKD-EPI 125.8 (>60)
[2022-03-11] MEDS: Azithromycin 500 mg/250 ml NS 500 MG/250 ML BAG IVPB SCH (18:24)
[2022-03-11] MEDS: Amoxicillin/Clavul 875/125 TAB (Augmentin 875 tab) PO SCH (21:45)
[2022-03-12 09:14] LABS: ABS Eosinophils 0.2 10^3/ul (0-0.6); ABS Lymphocytes 1.5 10^3/ul (1.0-4.8); ABS Monocytes 0.8 10^3/ul (0-0.8); ABS Neutrophils 4.7 10^3/ul (1.5-7.7); Eosinophil % 2.5 %; Hematocrit 40 % (42-52); Hemoglobin 12.8 g/dL (14.0-18.0); Lymphocyte % 20.6 %; Mean Corpuscular HGB Conc 32 g/dL (31-36); Mean Corpuscular Hemoglobin 26 pg (27-31); Mean Corpuscular Volume 81 fL (80-94); Mean Platelet Volume 8.9 fL (7.4-10.4); Platelet Count 177 10^3/uL (150-450); Red Cell Distribution Width 18 % (10-15); White Blood Count 7.3 10^3/uL (3.5-10.8)
[2022-03-12] MEDS: Amoxicillin/Clavul 875/125 TAB (Augmentin 875 tab) PO SCH (09:50)
[2022-03-12 09:51] LABS: CO2 Carbon Dioxide 25 mmol/L (22-32); Calcium 9.2 mg/dL (8.6-10.3); Chloride 104 mmol/L (101-111); Sodium 140 mmol/L (135-145)
[2022-03-12] MEDS: Polyethylene Glycol 3350 17 GM PACKET PO SCH (09:54)
[2022-03-12 09:57] LABS: Blood Urea Nitrogen 5 mg/dL (6-24); Glucose 79 mg/dL (70-100); eGFR CKD-EPI 133.2 (>60)
[2022-03-12 10:26] LABS: Anion Gap 11 mmol/L (2-11)
[2022-03-13] MEDS: Polyethylene Glycol 3350 17 GM PACKET PO SCH (10:04)
[2022-03-14] MEDS: Polyethylene Glycol 3350 17 GM PACKET PO SCH (08:58)
[2022-03-14 15:47] VITALS: BP 107/55
== END 2022-03-14 23:32 | disposition home or self-care (01) | DRG 871 ==
LOC: ED 13:23 → EDHOLD 17:42 → SUATTDRO 17:42 → MEDTELE 20:00
PROVIDERS: ADMIT Internal Medicine; ATTEND Internal Medicine